=== PATIENT | female | born 1940 ===

== ENCOUNTER 2018-03-28 07:37 | Day surgery (SDC) | payer OTHER ==
[2018-03-28 08:05] VITALS: BMI 31.3
[2018-03-28] MEDS ORDERED: Propofol 10 mg/ml Inj (20 ML) ONE (09:32)
[2018-03-28] MEDS ORDERED: Lactated Ringer's 1,000 ML IV ONE (09:36)
[2018-03-28] MEDS ORDERED: Lidocaine Hydrochloride 5 ML INJ ONE (09:38)
[2018-03-28] MEDS ORDERED: Lactated Ringer's 500 ML IV SCH (09:45)
[2018-03-28 10:27] VITALS: TEMP 97.9
[2018-03-28 11:26] VITALS: BP 129/62; PULSE 55; RESP 14; O2SAT 98
== END 2018-03-28 11:30 | disposition home or self-care (01) ==
LOC: C.ENDO 07:37
PROVIDERS: ATTEND Internal Medicine Gastroenterology
DX: Z12.11 Encounter for screening for malignant neoplasm of colon (principal); D12.3 Benign neoplasm of transverse colon; D12.5 Benign neoplasm of sigmoid colon; K57.90 Diverticulosis of intestine, part unspecified, without perforation or abscess without bleeding; K64.2 Third degree hemorrhoids; I10 Essential (primary) hypertension; E78.5 Hyperlipidemia, unspecified
CPT/HCPCS: 45380; 45385; 88305; J2704; J3010; J7120